=== PATIENT | female | born 1985 | race Caucasian/White ===

== ENCOUNTER 2016-12-17 13:22 | Emergency (ER) | payer OTHER ==
[~2016-12-17] VITALS: Ht 157.5 cm; Wt 77.3 kg
[2016-12-17 15:56] VITALS: BP 128/75
== END 2016-12-17 17:37 | disposition home or self-care (01) ==
LOC: EMS 13:23
DX: R13.10 Dysphagia, unspecified (principal); J02.9 Acute pharyngitis, unspecified
CPT/HCPCS: 70360; 81025; 99284

== ENCOUNTER 2019-07-09 11:52 | Emergency (ER) | payer OTHER ==
[~2019-07-09] VITALS: Ht 160 cm; Wt 77.3 kg
[2019-07-09] MEDS ORDERED: CARBAMIDE PEROXIDE 6.5% 15 ML OTIC SOLUTION AU ONE (12:45)
[2019-07-09] MEDS ORDERED: DEXAMETHASONE SOD PHOS 4 MG/ML 5 ML VIAL IM ONE (12:45)
[2019-07-09] MEDS ORDERED: ACETAMINOPHEN 500 MG TABLET PO ONE (13:30)
[2019-07-09 14:05] VITALS: BP 119/76
== END 2019-07-09 14:13 | disposition home or self-care (01) ==
LOC: EMS 11:53
DX: J02.8 Acute pharyngitis due to other specified organisms (principal); B97.89 Other viral agents as the cause of diseases classified elsewhere
CPT/HCPCS: 87430; 96372; 99283; J1100

== ENCOUNTER 2020-05-01 14:03 | Emergency (ER) | payer OTHER ==
[~2020-05-01] VITALS: Ht 160 cm; Wt 84.5 kg
[2020-05-01 14:10] VITALS: BP 121/85
== END 2020-05-01 16:35 | disposition home or self-care (01) ==
LOC: EMS 14:06
DX: U07.1 COVID-19 (principal)
CPT/HCPCS: 99283; U0003

== ENCOUNTER 2020-05-08 13:17 | Emergency (ER) | payer OTHER ==
[~2020-05-08] VITALS: Ht 167.6 cm; Wt 86.4 kg
[2020-05-08 13:19] VITALS: BP 123/81
== END 2020-05-08 15:51 | disposition home or self-care (01) ==
LOC: EMS 13:17
DX: U07.1 COVID-19 (principal); J12.89 Other viral pneumonia
CPT/HCPCS: 71045-TC

== ENCOUNTER 2020-08-26 12:00 | Emergency (ER) | payer OTHER ==
[~2020-08-26] VITALS: Ht 154.9 cm; Wt 61.4 kg
[2020-08-26 12:09] VITALS: BP 132/92
[2020-08-26] MEDS ORDERED: CARBAMIDE PEROXIDE 6.5% 15 ML OTIC SOLUTION AU ONE (13:00)
== END 2020-08-26 14:36 | disposition home or self-care (01) ==
LOC: EMS 12:00
DX: G56.02 Carpal tunnel syndrome, left upper limb (principal); H61.23 Impacted cerumen, bilateral
CPT/HCPCS: 69209; 69210; 99283; 99284

== ENCOUNTER 2021-01-14 18:43 | Emergency (ER) | payer OTHER ==
[~2021-01-14] VITALS: Ht 160 cm; Wt 74.5 kg
[2021-01-14 18:45] VITALS: BP 116/76
== END 2021-01-14 20:03 | disposition home or self-care (01) ==
LOC: EMS 18:43
DX: M79.7 Fibromyalgia (principal); M62.838 Other muscle spasm; F41.9 Anxiety disorder, unspecified; G56.02 Carpal tunnel syndrome, left upper limb; Z87.891 Personal history of nicotine dependence
CPT/HCPCS: 99281; 99283

== ENCOUNTER 2021-01-15 11:34 | Emergency (ER) | payer OTHER ==
[~2021-01-15] VITALS: Ht 160 cm; Wt 74.1 kg
[2021-01-15 13:55] LABS: APPEARANCE,URINE CLEAR (CLEAR); BILIRUBIN,URINE NEGATIVE (NEGATIVE); GLUCOSE, URINE (UA) NEGATIVE (NEGATIVE); KETONES,URINE NEGATIVE (NEGATIVE); LEUKOCYTE ESTERASE ,URINE NEGATIVE (NEGATIVE); NITRATE,URINE NEGATIVE (NEGATIVE); OCCULT BLOOD,URINE TRACE (NEGATIVE); PH,URINE 6.5 (5.0-8.0); PROTEIN,URINE NEGATIVE (NEGATIVE); UROBILINOGEN,URINE 0.2 mg/dL (<=1.0)
[2021-01-15 14:02] LABS: BACTERIA,URINE None Seen /HPF (None Seen); RBC,URINE 0-2 /HPF (0-2); WBC,URINE None Seen /HPF (0-5)
[2021-01-15 15:14] VITALS: BP 110/70
== END 2021-01-15 15:15 | disposition home or self-care (01) ==
LOC: EMS 11:40
DX: M79.605 Pain in left leg (principal); F41.9 Anxiety disorder, unspecified
CPT/HCPCS: 81001; 84703; 93971; 99284; Z7502

== ENCOUNTER 2021-08-28 20:07 | Emergency (ER) | payer OTHER ==
[~2021-08-28] VITALS: Ht 160 cm; Wt 60.0 kg
[2021-08-28 22:34] LABS: BASOPHILS % (AUTO) 1.2 % (0.0-2.0); EOSINOPHILS % (AUTO) 2.7 % (1.0-6.0); HEMATOCRIT 40.6 % (36-46); HEMOGLOBIN 13.9 g/dL (12.0-16.0); LYMPHOCYTES # (AUTO) 1.6 K/uL (1.0-4.8); MEAN CORPUSCULAR HEMOGLOBIN 32.6 pg (26.0-34.0); MEAN CORPUSCULAR HGB CONC 34.3 G/dL (31.0-37.0); MEAN CORPUSCULAR VOLUME 95 fL (80-100); MONOCYTES # (AUTO) 0.4 K/uL (0.1-1.0); MONOCYTES % (AUTO) 6.3 % (2.0-9.0); NEUTROPHILS # (AUTO) 3.4 K/uL (1.8-7.7); NEUTROPHILS % (AUTO) 60.8 % (40.0-70.0); PLATELET COUNT (AUTO) 216 K/uL (150-450); RED BLOOD CELL COUNT(AUTO) 4.27 MIL/uL (4.00-5.20); RED CELL DISTRIBUTION WIDTH 12.5 % (11.5-14.5)
[2021-08-28 22:42] LABS: ANION GAP 4 mmol/L (8-16); CALCIUM, TOTAL 8.7 mg/dL (8.8-10.5); CARBON DIOXIDE 31 mmol/L (22-29); CHLORIDE 101 mmol/L (98-107); CREATININE 0.64 mg/dL (0.60-1.30); GLOMERULAR FILTR. RATE CALC > 60 mL/min (>60); GLUCOSE,RANDOM 83 mg/dL (70-110); POTASSIUM 3.4 mmol/L (3.5-5.1); SODIUM SERUM 136 mmol/L (136-145); UREA NITROGEN, BLOOD 13 mg/dL (7-18)
[2021-08-28 22:51] LABS: B-TYPE NATRIURETIC PEPTIDE 20 pg/mL (0-100)
[2021-08-28] MEDS ORDERED: LIDOCAINE 5% TRANSDERMAL PATCH TD ONE (23:00)
[2021-08-28] MEDS ORDERED: IBUPROFEN 600 MG TABLET PO ONE (23:00)
[2021-08-28 23:07] LABS: ALANINE AMINOTRANSFERASE 95 U/L (12-78); ALBUMIN 4.2 g/dL (3.4-5.0); ALKALINE PHOSPHATASE 47 U/L (46-116); ASPARTATE AMINOTRANSFERASE 80 U/L (15-37); BILIRUBIN,TOTAL 1.2 mg/dL (0.1-1.0); CREATINE KINASE, TOTAL ONLY 167 U/L (26-192); HCG,QUANTITATIVE < 1 mIU/mL (0-6); TOTAL PROTEIN, SERUM 7.9 g/dL (6.4-8.2)
[2021-08-28 23:15] VITALS: BP 133/101
== END 2021-08-29 00:37 | disposition home or self-care (01) ==
LOC: EMS 20:08
DX: R07.89 Other chest pain (principal); R06.02 Shortness of breath
CPT/HCPCS: 71045; 80053; 82550; 83880; 84484; 84702; 85025; 85379; 93005; 99285; 36415-L1; 36415-TC

== ENCOUNTER 2021-09-17 15:14 | Emergency (ER) | payer OTHER ==
[~2021-09-17] VITALS: Ht 160 cm; Wt 70.0 kg
[2021-09-17] MEDS ORDERED: IBUPROFEN 600 MG TABLET PO ONE (17:00)
[2021-09-17 17:19] LABS: BASOPHILS % (AUTO) 0.6 % (0.0-2.0); EOSINOPHILS % (AUTO) 1.2 % (1.0-6.0); HEMATOCRIT 37.1 % (36-46); HEMOGLOBIN 12.6 g/dL (12.0-16.0); LYMPHOCYTES # (AUTO) 1.3 K/uL (1.0-4.8); LYMPHOCYTES % (AUTO) 22.8 % (22.0-44.0); MEAN CORPUSCULAR HEMOGLOBIN 32.5 pg (26.0-34.0); MEAN CORPUSCULAR HGB CONC 34.1 G/dL (31.0-37.0); MEAN CORPUSCULAR VOLUME 95 fL (80-100); MONOCYTES # (AUTO) 0.6 K/uL (0.1-1.0); MONOCYTES % (AUTO) 10.2 % (2.0-9.0); NEUTROPHILS # (AUTO) 3.8 K/uL (1.8-7.7); NEUTROPHILS % (AUTO) 65.2 % (40.0-70.0); PLATELET COUNT (AUTO) 217 K/uL (150-450); RED BLOOD CELL COUNT(AUTO) 3.89 MIL/uL (4.00-5.20); RED CELL DISTRIBUTION WIDTH 12.6 % (11.5-14.5)
[2021-09-17 17:28] LABS: ANION GAP 6 mmol/L (8-16); CALCIUM, TOTAL 8.9 mg/dL (8.8-10.5); CARBON DIOXIDE 31 mmol/L (22-29); CHLORIDE 100 mmol/L (98-107); CREATININE 0.63 mg/dL (0.60-1.30); GLOMERULAR FILTR. RATE CALC > 60 mL/min (>60); GLUCOSE,RANDOM 102 mg/dL (70-110); POTASSIUM 4.4 mmol/L (3.5-5.1); SODIUM SERUM 137 mmol/L (136-145); UREA NITROGEN, BLOOD 8 mg/dL (7-18)
[2021-09-17 18:05] LABS: COVID AG,FIA SOURCE NASOPHARYNGEAL
[2021-09-17 18:07] VITALS: BP 123/92
== END 2021-09-17 18:50 | disposition home or self-care (01) ==
LOC: EMS 15:18
DX: R07.81 Pleurodynia (principal); J02.9 Acute pharyngitis, unspecified; R06.02 Shortness of breath; F41.9 Anxiety disorder, unspecified; Z20.822 Contact with and (suspected) exposure to COVID-19
CPT/HCPCS: 71045; 80048; 84484; 85025; 85379; 93005; 99285; 36415-L1; 36415-TC

== ENCOUNTER 2021-09-19 10:43 | Emergency (ER) | payer OTHER ==
[~2021-09-19] VITALS: Ht 167.6 cm; Wt 72.7 kg
[2021-09-19] MEDS ORDERED: KETOROLAC TROMETHAMINE 10 MG TABLET PO ONE (13:30)
[2021-09-19 13:58] LABS: BASOPHILS % (AUTO) 0.6 % (0.0-2.0); EOSINOPHILS % (AUTO) 1.3 % (1.0-6.0); HEMOGLOBIN 13.3 g/dL (12.0-16.0); LYMPHOCYTES # (AUTO) 1.3 K/uL (1.0-4.8); LYMPHOCYTES % (AUTO) 17.9 % (22.0-44.0); MEAN CORPUSCULAR HEMOGLOBIN 32.6 pg (26.0-34.0); MEAN CORPUSCULAR HGB CONC 34.1 G/dL (31.0-37.0); MEAN CORPUSCULAR VOLUME 96 fL (80-100); MONOCYTES # (AUTO) 0.4 K/uL (0.1-1.0); MONOCYTES % (AUTO) 6.4 % (2.0-9.0); NEUTROPHILS # (AUTO) 5.2 K/uL (1.8-7.7); NEUTROPHILS % (AUTO) 73.8 % (40.0-70.0); PLATELET COUNT (AUTO) 229 K/uL (150-450); RED BLOOD CELL COUNT(AUTO) 4.07 MIL/uL (4.00-5.20); RED CELL DISTRIBUTION WIDTH 12.7 % (11.5-14.5)
[2021-09-19 14:10] LABS: ANION GAP 6 mmol/L (8-16); CALCIUM, TOTAL 8.8 mg/dL (8.8-10.5); CARBON DIOXIDE 29 mmol/L (22-29); CHLORIDE 103 mmol/L (98-107); CREATININE 0.57 mg/dL (0.60-1.30); GLUCOSE,RANDOM 81 mg/dL (70-110); POTASSIUM 4.2 mmol/L (3.5-5.1); SODIUM SERUM 138 mmol/L (136-145); UREA NITROGEN, BLOOD 6 mg/dL (7-18)
[2021-09-19 14:11] LABS: GLOMERULAR FILTR. RATE CALC > 60 mL/min (>60)
[2021-09-19 14:13] LABS: ALANINE AMINOTRANSFERASE 141 U/L (12-78); ALKALINE PHOSPHATASE 38 U/L (46-116); ASPARTATE AMINOTRANSFERASE 127 U/L (15-37); BILIRUBIN,TOTAL 1.2 mg/dL (0.1-1.0); TOTAL PROTEIN, SERUM 7.9 g/dL (6.4-8.2)
[2021-09-19 14:26] LABS: COVID AG,FIA SOURCE NASOPHARYNGEAL
[2021-09-19] MEDS ORDERED: ALBU8HFA IH (15:04)
[2021-09-19] MEDS ORDERED: NAPR-1024 PO (15:04)
[2021-09-19] MEDS ORDERED: GABA-1216 PO (15:04)
[2021-09-19] MEDS ORDERED: TRAM50TA4 PO (15:05)
[2021-09-19] MEDS ORDERED: ONDANSETRON HCL 4 MG TABLET PO ONE (17:00)
[2021-09-19 17:02] VITALS: BP 114/72
== END 2021-09-19 17:10 | disposition home or self-care (01) ==
LOC: EMS 10:43
DX: R07.89 Other chest pain (principal); F41.9 Anxiety disorder, unspecified; Z20.822 Contact with and (suspected) exposure to COVID-19
CPT/HCPCS: 36415; 71045; 80053; 85025; 87426; 93005; 99285; Q0162

== ENCOUNTER 2021-10-01 08:39 | Emergency (ER) | payer OTHER ==
[~2021-10-01] VITALS: Ht 160 cm; Wt 61.4 kg
[~2021-10-01 08:39] MED LIST: ALBU8HFA IH; GABA-1216 PO; NAPR-1024 PO
[2021-10-01 08:50] VITALS: BP 120/74
[2021-10-01 09:29] LABS: COVID AG,FIA SOURCE NASOPHARYNGEAL
== END 2021-10-01 10:19 | disposition home or self-care (01) ==
LOC: EMS 08:39
DX: Z20.822 Contact with and (suspected) exposure to COVID-19 (principal); F41.9 Anxiety disorder, unspecified; F32.A Depression, unspecified; K76.0 Fatty (change of) liver, not elsewhere classified; Z87.898 Personal history of other specified conditions
CPT/HCPCS: 99283

== ENCOUNTER 2021-12-14 21:43 | Emergency (ER) | payer OTHER ==
[~2021-12-14] VITALS: Ht 157.5 cm; Wt 68.2 kg
[2021-12-14 23:13] LABS: HEMATOCRIT 40.9 % (36-46); HEMOGLOBIN 14.2 g/dL (12.0-16.0); MEAN CORPUSCULAR HEMOGLOBIN 32.3 pg (26.0-34.0); MEAN CORPUSCULAR HGB CONC 34.6 G/dL (31.0-37.0); MEAN CORPUSCULAR VOLUME 93 fL (80-100); MONOCYTES # (AUTO) 0.2 K/uL (0.1-1.0); MONOCYTES % (AUTO) 3.9 % (2.0-9.0); NEUTROPHILS # (AUTO) 2.6 K/uL (1.8-7.7); NEUTROPHILS % (AUTO) 43.1 % (40.0-70.0); PLATELET COUNT (AUTO) 276 K/uL (150-450); RED BLOOD CELL COUNT(AUTO) 4.39 MIL/uL (4.00-5.20); RED CELL DISTRIBUTION WIDTH 12.5 % (11.5-14.5)
[2021-12-14 23:22] LABS: ANION GAP 14 mmol/L (8-16); CALCIUM, TOTAL 8.9 mg/dL (8.8-10.5); CARBON DIOXIDE 25 mmol/L (22-29); CHLORIDE 101 mmol/L (98-107); CREATININE 0.53 mg/dL (0.60-1.30); GLUCOSE,RANDOM 98 mg/dL (70-110); POTASSIUM 3.8 mmol/L (3.5-5.1); SODIUM SERUM 140 mmol/L (136-145); UREA NITROGEN, BLOOD 6 mg/dL (7-18)
[2021-12-14 23:23] LABS: GLOMERULAR FILTR. RATE CALC > 60 mL/min (>60)
[2021-12-14 23:33] LABS: ALANINE AMINOTRANSFERASE 46 U/L (12-78); ALBUMIN 4.5 g/dL (3.4-5.0); ALKALINE PHOSPHATASE 46 U/L (46-116); ASPARTATE AMINOTRANSFERASE 38 U/L (15-37); BILIRUBIN,TOTAL 0.8 mg/dL (0.1-1.0); HCG,QUANTITATIVE < 1 mIU/mL (0-6); LIPASE 253 U/L (73-393); TOTAL PROTEIN, SERUM 8.4 g/dL (6.4-8.2)
[2021-12-15] MEDS ORDERED: FAMOTIDINE 10 MG/ML 2 ML VIAL IVP ONE (00:15)
[2021-12-15] MEDS ORDERED: SODIUM CHLORIDE 0.9% 1,000 ML IV ONE (00:15)
[2021-12-15 01:11] LABS: APPEARANCE,URINE HAZY (CLEAR); BILIRUBIN,URINE NEGATIVE (NEGATIVE); GLUCOSE, URINE (UA) NEGATIVE (NEGATIVE); KETONES,URINE NEGATIVE (NEGATIVE); LEUKOCYTE ESTERASE ,URINE LARGE (NEGATIVE); NITRATE,URINE NEGATIVE (NEGATIVE); OCCULT BLOOD,URINE NEGATIVE (NEGATIVE); PH,URINE 5.5 (5.0-8.0); PROTEIN,URINE NEGATIVE (NEGATIVE); SPECIFIC GRAVITIY, URINE 1.009 (1.003-1.030); UROBILINOGEN,URINE <=1.0 mg/dL (<=1.0)
[2021-12-15 01:20] LABS: RBC,URINE 0-2 /HPF (0-2)
[2021-12-15 01:21] LABS: BACTERIA,URINE Few /HPF (None Seen)
[2021-12-15 04:00] VITALS: BP 90/56
== END 2021-12-15 05:29 | disposition home or self-care (01) ==
LOC: EMS 21:43
DX: F10.229 Alcohol dependence with intoxication, unspecified (principal); K29.70 Gastritis, unspecified, without bleeding; F41.9 Anxiety disorder, unspecified; F32.A Depression, unspecified; K76.0 Fatty (change of) liver, not elsewhere classified; Z86.79 Personal history of other diseases of the circulatory system; Y90.8 Blood alcohol level of 240 mg/100 ml or more
CPT/HCPCS: 99284; 76705; 80053; 81001; 83690; 84702; 84703; 85025; 36415; 87086; 96374; 96361; G0480; J3490; J7030

== ENCOUNTER 2021-12-16 21:35 | Emergency (ER) | payer OTHER ==
[~2021-12-16] VITALS: Ht 157.5 cm; Wt 70.0 kg
[2021-12-16 22:36] LABS: BASOPHILS % (AUTO) 0.6 % (0.0-2.0); EOSINOPHILS % (AUTO) 1.9 % (1.0-6.0); HEMATOCRIT 36.2 % (36-46); HEMOGLOBIN 12.4 g/dL (12.0-16.0); LYMPHOCYTES % (AUTO) 33.8 % (22.0-44.0); MEAN CORPUSCULAR HEMOGLOBIN 31.9 pg (26.0-34.0); MEAN CORPUSCULAR HGB CONC 34.2 G/dL (31.0-37.0); MEAN CORPUSCULAR VOLUME 93 fL (80-100); MONOCYTES # (AUTO) 0.5 K/uL (0.1-1.0); MONOCYTES % (AUTO) 7.8 % (2.0-9.0); NEUTROPHILS # (AUTO) 3.3 K/uL (1.8-7.7); NEUTROPHILS % (AUTO) 55.9 % (40.0-70.0); PLATELET COUNT (AUTO) 216 K/uL (150-450); RED BLOOD CELL COUNT(AUTO) 3.88 MIL/uL (4.00-5.20); RED CELL DISTRIBUTION WIDTH 12.3 % (11.5-14.5)
[2021-12-16 22:46] LABS: ANION GAP 10 mmol/L (8-16); CALCIUM, TOTAL 8.9 mg/dL (8.8-10.5); CARBON DIOXIDE 27 mmol/L (22-29); CHLORIDE 99 mmol/L (98-107); CREATININE 0.66 mg/dL (0.60-1.30); GLOMERULAR FILTR. RATE CALC > 60 mL/min (>60); GLUCOSE,RANDOM 100 mg/dL (70-110); POTASSIUM 3.7 mmol/L (3.5-5.1); SODIUM SERUM 136 mmol/L (136-145); UREA NITROGEN, BLOOD 15 mg/dL (7-18)
[2021-12-16 22:57] LABS: ALANINE AMINOTRANSFERASE 50 U/L (12-78); ALBUMIN 4.2 g/dL (3.4-5.0); ALKALINE PHOSPHATASE 40 U/L (46-116); ASPARTATE AMINOTRANSFERASE 40 U/L (15-37); BILIRUBIN,TOTAL 1.6 mg/dL (0.1-1.0); TOTAL PROTEIN, SERUM 7.7 g/dL (6.4-8.2)
[2021-12-16 23:28] LABS: HCG,QUANTITATIVE < 1 mIU/mL (0-6); PHOSPHORUS 3.8 mg/dL (2.5-4.9)
[2021-12-17] VITALS: BP 132/87
== END 2021-12-17 00:52 | disposition home or self-care (01) ==
LOC: EMS 21:35
DX: R00.2 Palpitations (principal); F32.9 Major depressive disorder, single episode, unspecified; F41.9 Anxiety disorder, unspecified; Z79.899 Other long term (current) drug therapy
CPT/HCPCS: 99284; 80053; 83735; 84100; 84702; 85025; 36415; 93005; G0480

== ENCOUNTER 2022-01-15 17:55 | Emergency (ER) | payer OTHER ==
[~2022-01-15] VITALS: Ht 157.5 cm; Wt 70.9 kg
[2022-01-15] MEDS ORDERED: SODIUM CHLORIDE 0.9% 1,000 ML IV ONE (19:30)
[2022-01-15] MEDS ORDERED: KETOROLAC TROMETHAMINE 30 MG/ML VIAL IVP ONE (19:30)
[2022-01-15] MEDS ORDERED: ONDANSETRON HCL 4 MG/2 ML VIAL IVP ONE (19:30)
[2022-01-15 19:48] LABS: BASOPHILS % (AUTO) 0.1 % (0.0-2.0); EOSINOPHILS % (AUTO) 0 % (1.0-6.0); HEMATOCRIT 39.9 % (36-46); HEMOGLOBIN 13.6 g/dL (12.0-16.0); LYMPHOCYTES # (AUTO) 0.3 K/uL (1.0-4.8); LYMPHOCYTES % (AUTO) 5.2 % (22.0-44.0); MEAN CORPUSCULAR HEMOGLOBIN 32.1 pg (26.0-34.0); MEAN CORPUSCULAR VOLUME 94 fL (80-100); MONOCYTES # (AUTO) 0.5 K/uL (0.1-1.0); MONOCYTES % (AUTO) 7.6 % (2.0-9.0); NEUTROPHILS # (AUTO) 5.5 K/uL (1.8-7.7); PLATELET COUNT (AUTO) 212 K/uL (150-450); RED BLOOD CELL COUNT(AUTO) 4.23 MIL/uL (4.00-5.20); RED CELL DISTRIBUTION WIDTH 13.5 % (11.5-14.5)
[2022-01-15 19:50] LABS: NEUTROPHILS % (AUTO) 87.1 % (40.0-70.0)
[2022-01-15 20:04] LABS: PLATELET MORPHOLOGY COMMENT GIANT PLTS PRESENT
[2022-01-15 20:07] LABS: ANION GAP 13 mmol/L (8-16); CALCIUM, TOTAL 8.9 mg/dL (8.8-10.5); CARBON DIOXIDE 25 mmol/L (22-29); CHLORIDE 97 mmol/L (98-107); CREATININE 0.67 mg/dL (0.60-1.30); GLUCOSE,RANDOM 113 mg/dL (70-110); SODIUM SERUM 135 mmol/L (136-145); UREA NITROGEN, BLOOD 12 mg/dL (7-18)
[2022-01-15 20:08] LABS: GLOMERULAR FILTR. RATE CALC > 60 mL/min (>60)
[2022-01-15 20:19] LABS: ALANINE AMINOTRANSFERASE 126 U/L (12-78); ALBUMIN 4.3 g/dL (3.4-5.0); ALKALINE PHOSPHATASE 40 U/L (46-116); ASPARTATE AMINOTRANSFERASE 57 U/L (15-37); BILIRUBIN,TOTAL 1.7 mg/dL (0.1-1.0); HCG,QUANTITATIVE < 1 mIU/mL (0-6); LIPASE 127 U/L (73-393); TOTAL PROTEIN, SERUM 8.2 g/dL (6.4-8.2)
[2022-01-15] MEDS ORDERED: DOCU-385 PO (20:32)
[2022-01-15] MEDS ORDERED: OMEP20 PO (20:32)
[2022-01-15] MEDS ORDERED: ONDA-104 PO (20:32)
[2022-01-15 20:45] VITALS: BP 129/83
== END 2022-01-15 20:49 | disposition home or self-care (01) ==
LOC: EMS 17:57
DX: K70.9 Alcoholic liver disease, unspecified (principal); R10.13 Epigastric pain; K59.00 Constipation, unspecified; F10.20 Alcohol dependence, uncomplicated; F41.9 Anxiety disorder, unspecified; F32.A Depression, unspecified; K76.0 Fatty (change of) liver, not elsewhere classified; Z86.79 Personal history of other diseases of the circulatory system
CPT/HCPCS: 99284; 96374; 96361; 96375; 80053; 83690; 84702; 85025; 36415; G0480; J1885; J2405; J7030

== ENCOUNTER 2022-02-09 01:18 | Emergency (ER) | payer OTHER ==
[~2022-02-09] VITALS: Ht 157.5 cm; Wt 70.0 kg
[~2022-02-09 01:18] MED LIST changes: +DOCU-385 PO; +OMEP20 PO; +ONDA-104 PO
[2022-02-09 01:19] VITALS: BP 120/77
== END 2022-02-09 03:39 | disposition left against medical advice (07) ==
LOC: EMS 01:18
DX: Z53.21 Procedure and treatment not carried out due to patient leaving prior to being seen by health care provider (principal)
CPT/HCPCS: 93005

== ENCOUNTER 2022-05-04 12:47 | Emergency (ER) | payer OTHER ==
[~2022-05-04] VITALS: Ht 160 cm; Wt 68.2 kg
[2022-05-04 14:23] LABS: BASOPHILS % (AUTO) 0.6 % (0.0-2.0); EOSINOPHILS % (AUTO) 0.4 % (1.0-6.0); HEMATOCRIT 40.1 % (36-46); HEMOGLOBIN 13.8 g/dL (12.0-16.0); LYMPHOCYTES # (AUTO) 1.5 K/uL (1.0-4.8); LYMPHOCYTES % (AUTO) 18.4 % (22.0-44.0); MEAN CORPUSCULAR HEMOGLOBIN 32.4 pg (26.0-34.0); MEAN CORPUSCULAR HGB CONC 34.4 G/dL (31.0-37.0); MEAN CORPUSCULAR VOLUME 94 fL (80-100); MONOCYTES # (AUTO) 0.4 K/uL (0.1-1.0); MONOCYTES % (AUTO) 4.8 % (2.0-9.0); NEUTROPHILS # (AUTO) 6.4 K/uL (1.8-7.7); NEUTROPHILS % (AUTO) 75.8 % (40.0-70.0); PLATELET COUNT (AUTO) 330 K/uL (150-450); RED BLOOD CELL COUNT(AUTO) 4.26 MIL/uL (4.00-5.20); RED CELL DISTRIBUTION WIDTH 12.2 % (11.5-14.5)
[2022-05-04 14:30] LABS: ANION GAP 8 mmol/L (8-16); CALCIUM, TOTAL 9.4 mg/dL (8.8-10.5); CARBON DIOXIDE 28 mmol/L (22-29); CHLORIDE 95 mmol/L (98-107); CREATININE 0.65 mg/dL (0.60-1.30); GLUCOSE,RANDOM 111 mg/dL (70-110); POTASSIUM 3.8 mmol/L (3.5-5.1); SODIUM SERUM 131 mmol/L (136-145); UREA NITROGEN, BLOOD 7 mg/dL (7-18)
[2022-05-04 14:31] LABS: GLOMERULAR FILTR. RATE CALC > 60 mL/min (>60)
[2022-05-04 14:45] LABS: ALANINE AMINOTRANSFERASE 68 U/L (12-78); ALBUMIN 4.7 g/dL (3.4-5.0); ALKALINE PHOSPHATASE 46 U/L (46-116); ASPARTATE AMINOTRANSFERASE 49 U/L (15-37); BILIRUBIN,TOTAL 2.2 mg/dL (0.1-1.0); FREE T4 (FREE THYROXINE) 0.82 ng/dL (0.76-1.46); HCG,QUANTITATIVE < 1 mIU/mL (0-6); THYROID STIMULATING HORMONE 0.78 uIU/mL (0.36-3.74); TOTAL PROTEIN, SERUM 8.6 g/dL (6.4-8.2)
[2022-05-04] MEDS ORDERED: MAGNESIUM SULFATE 2 GM/WATER 50 ML IV ONE (15:15)
[2022-05-04 17:17] VITALS: BP 140/88
== END 2022-05-04 17:18 | disposition home or self-care (01) ==
LOC: EMS 12:51
DX: R00.2 Palpitations (principal); E83.42 Hypomagnesemia; F10.20 Alcohol dependence, uncomplicated; F41.9 Anxiety disorder, unspecified; F32.A Depression, unspecified
CPT/HCPCS: 99284; 96365; 80053; 83735; 84439; 84443; 84484; 84702; 85025; 36415; 93005; J3475

== ENCOUNTER 2022-07-23 09:43 | Emergency (ER) | payer OTHER ==
[~2022-07-23] VITALS: Ht 160 cm; Wt 56.8 kg
[2022-07-23 10:03] LABS: COVID AG,FIA SOURCE NASAL SWAB
[2022-07-23 10:57] LABS: RAPID GROUP A STREP NEGATIVE (NEGATIVE)
[2022-07-23 11:03] LABS: INFLUENZA TYPE A NEGATIVE FOR TYPE A (NEGATIVE); INFLUENZA TYPE B NEGATIVE FOR TYPE B (NEGATIVE)
[2022-07-23] MEDS ORDERED: ACETAMINOPHEN 500 MG TABLET PO ONE (15:00)
[2022-07-23] MEDS ORDERED: SODIUM CHLORIDE 0.9% 1,000 ML IV ONE (15:00)
[2022-07-23] MEDS ORDERED: DEXAMETHASONE SOD PHOS 4 MG/ML 5 ML VIAL IVP ONE (15:00)
[2022-07-23] MEDS ORDERED: KETOROLAC TROMETHAMINE 30 MG/ML VIAL IVP ONE (15:00)
[2022-07-23 16:00] VITALS: BP 125/73
[2022-07-23] MEDS ORDERED: IBUP-1506 PO (16:13)
== END 2022-07-23 16:35 | disposition home or self-care (01) ==
LOC: EMS 09:57
DX: J02.8 Acute pharyngitis due to other specified organisms (principal); R65.10 Systemic inflammatory response syndrome (SIRS) of non-infectious origin without acute organ dysfunction; F10.20 Alcohol dependence, uncomplicated; F41.9 Anxiety disorder, unspecified; F32.A Depression, unspecified; Z87.891 Personal history of nicotine dependence; Z20.822 Contact with and (suspected) exposure to COVID-19
CPT/HCPCS: 99284; 96374; 96361; 96375; 87426; 87430; 87804; J1100; J1885; J7030

== ENCOUNTER 2022-09-26 17:42 | Emergency (ER) | payer OTHER ==
[~2022-09-26] VITALS: Ht 157.5 cm; Wt 81.8 kg
[~2022-09-26 17:42] MED LIST changes: -ALBU8HFA IH; -DOCU-385 PO; -GABA-1216 PO; +IBUP-1506 PO; -NAPR-1024 PO; -OMEP20 PO; -ONDA-104 PO
[2022-09-26] MEDS ORDERED: SODIUM CHLORIDE 0.9% 1,000 ML IV ONE (18:15)
[2022-09-26 18:42] LABS: BASOPHILS % (AUTO) 0.9 % (0.0-2.0); EOSINOPHILS % (AUTO) 0.3 % (1.0-6.0); HEMATOCRIT 39.7 % (36-46); HEMOGLOBIN 13.7 g/dL (12.0-16.0); LYMPHOCYTES # (AUTO) 2.4 K/uL (1.0-4.8); MEAN CORPUSCULAR HGB CONC 34.4 G/dL (31.0-37.0); MEAN CORPUSCULAR VOLUME 93 fL (80-100); MONOCYTES # (AUTO) 0.3 K/uL (0.1-1.0); MONOCYTES % (AUTO) 4.9 % (2.0-9.0); NEUTROPHILS # (AUTO) 3.9 K/uL (1.8-7.7); NEUTROPHILS % (AUTO) 57.9 % (40.0-70.0); PLATELET COUNT (AUTO) 232 K/uL (150-450); RED BLOOD CELL COUNT(AUTO) 4.27 MIL/uL (4.00-5.20); RED CELL DISTRIBUTION WIDTH 12.8 % (11.5-14.5)
[2022-09-26 18:53] LABS: ANION GAP 13 mmol/L (8-16); CALCIUM, TOTAL 8.8 mg/dL (8.8-10.5); CARBON DIOXIDE 26 mmol/L (22-29); CHLORIDE 96 mmol/L (98-107); CREATININE 0.69 mg/dL (0.60-1.30); GLOMERULAR FILTR. RATE CALC > 60 mL/min (>60); GLUCOSE,RANDOM 102 mg/dL (70-110); POTASSIUM 3.6 mmol/L (3.5-5.1); SODIUM SERUM 135 mmol/L (136-145)
[2022-09-26 19:06] LABS: AMPHET/METH SCREEN,URINE NEGATIVE (NEGATIVE); BARBITURATE SCREEN, URINE NEGATIVE (NEGATIVE); BENZODIAZEPINES SCREEN,URINE NEGATIVE (NEGATIVE); CANNABINOID SCREEN,URINE NEGATIVE (NEGATIVE); COCAINE SCREEN,URINE NEGATIVE (NEGATIVE); METHADONE SCREEN, URINE NEGATIVE (NEGATIVE); OPIATE SCREEN,URINE NEGATIVE (NEGATIVE); PHENCYCLIDINE SCREEN,URINE NEGATIVE (NEGATIVE)
[2022-09-26 19:08] LABS: ALANINE AMINOTRANSFERASE 32 U/L (12-78); ALBUMIN 4.7 g/dL (3.4-5.0); ALKALINE PHOSPHATASE 39 U/L (46-116); ASPARTATE AMINOTRANSFERASE 28 U/L (15-37); BILIRUBIN,TOTAL 1.3 mg/dL (0.1-1.0); HCG,QUANTITATIVE < 1 mIU/mL (0-6); THYROID STIMULATING HORMONE 0.84 uIU/mL (0.36-3.74); TOTAL PROTEIN, SERUM 8.5 g/dL (6.4-8.2)
[2022-09-26 20:30] VITALS: BP 127/75
== END 2022-09-26 20:30 | disposition home or self-care (01) ==
LOC: EMS 17:47
DX: F41.9 Anxiety disorder, unspecified (principal); R00.2 Palpitations; F10.20 Alcohol dependence, uncomplicated; F32.A Depression, unspecified
CPT/HCPCS: 99285; 96360; 71045; 80053; 83735; 84443; 84484; 84702; 85025; 36415; 93005; 80307 ×2; G0480; J7030

== ENCOUNTER 2022-12-30 15:37 | Emergency (ER) | payer OTHER ==
[~2022-12-30] VITALS: Ht 160 cm; Wt 63.6 kg
[2022-12-30 15:52] VITALS: TEMP 98.4
[2022-12-30 16:49] LABS: EOSINOPHILS % (AUTO) 1.4 % (1.0-6.0); HEMATOCRIT 39.8 % (36-46); HEMOGLOBIN 13.4 g/dL (12.0-16.0); LYMPHOCYTES # (AUTO) 1.7 K/uL (1.0-4.8); LYMPHOCYTES % (AUTO) 26.6 % (22.0-44.0); MEAN CORPUSCULAR HEMOGLOBIN 32.3 pg (26.0-34.0); MEAN CORPUSCULAR HGB CONC 33.6 G/dL (31.0-37.0); MEAN CORPUSCULAR VOLUME 96 fL (80-100); MONOCYTES # (AUTO) 0.3 K/uL (0.1-1.0); MONOCYTES % (AUTO) 5.4 % (2.0-9.0); NEUTROPHILS # (AUTO) 4.1 K/uL (1.8-7.7); NEUTROPHILS % (AUTO) 65.6 % (40.0-70.0); PLATELET COUNT (AUTO) 266 K/uL (150-450); RED BLOOD CELL COUNT(AUTO) 4.13 MIL/uL (4.00-5.20); RED CELL DISTRIBUTION WIDTH 12.6 % (11.5-14.5)
[2022-12-30 17:52] LABS: ANION GAP 13 mmol/L (8-16); CALCIUM, TOTAL 9.4 mg/dL (8.8-10.5); CARBON DIOXIDE 26 mmol/L (22-29); CHLORIDE 99 mmol/L (98-107); CREATININE 0.57 mg/dL (0.60-1.30); GLOMERULAR FILTR. RATE CALC > 60 mL/min (>60); GLUCOSE,RANDOM 117 mg/dL (70-110); POTASSIUM 3.5 mmol/L (3.5-5.1); SODIUM SERUM 138 mmol/L (136-145)
[2022-12-30 18:23] LABS: ALANINE AMINOTRANSFERASE 43 U/L (12-78); ALBUMIN 4.5 g/dL (3.4-5.0); ALKALINE PHOSPHATASE 37 U/L (46-116); ASPARTATE AMINOTRANSFERASE 38 U/L (15-37); BILIRUBIN,TOTAL 1.4 mg/dL (0.1-1.0); TOTAL PROTEIN, SERUM 7.8 g/dL (6.4-8.2)
[2022-12-30 19:04] LABS: AMPHET/METH SCREEN,URINE NEGATIVE (NEGATIVE); BARBITURATE SCREEN, URINE NEGATIVE (NEGATIVE); BENZODIAZEPINES SCREEN,URINE NEGATIVE (NEGATIVE); CANNABINOID SCREEN,URINE NEGATIVE (NEGATIVE); COCAINE SCREEN,URINE NEGATIVE (NEGATIVE); METHADONE SCREEN, URINE NEGATIVE (NEGATIVE); OPIATE SCREEN,URINE NEGATIVE (NEGATIVE); PHENCYCLIDINE SCREEN,URINE NEGATIVE (NEGATIVE)
[2022-12-30 21:35] VITALS: BP 124/71; PULSE 69; RESP 16
[2022-12-30] MEDS ORDERED: ChlordiazePOXIDE HCL 10 MG CAPSULE PO ONE (21:45)
[2022-12-30] MEDS ORDERED: CHLO10CA7 PO (22:13)
[2022-12-30] MEDS ORDERED: OMEP20 PO (22:15)
== END 2022-12-30 23:38 | disposition home or self-care (01) ==
LOC: EMS 15:42
DX: F10.139 Alcohol abuse with withdrawal, unspecified (principal); F41.9 Anxiety disorder, unspecified; F32.A Depression, unspecified; K76.0 Fatty (change of) liver, not elsewhere classified; Z87.891 Personal history of nicotine dependence
CPT/HCPCS: 99283; 80053; 84703; 85025; 36415; 80307 ×2; G0480

== ENCOUNTER 2023-04-01 09:39 | Emergency (ER) | payer OTHER ==
[~2023-04-01 09:39] MED LIST changes: +CHLO10CA7 PO; -IBUP-1506 PO; +OMEP20 PO
== END 2023-04-01 10:20 | disposition left against medical advice (07) ==
LOC: EMS 09:39
DX: R06.02 Shortness of breath (principal); Z53.21 Procedure and treatment not carried out due to patient leaving prior to being seen by health care provider
CPT/HCPCS: 99281; Z7502

== ENCOUNTER 2023-05-26 08:20 | Emergency (ER) | payer OTHER ==
[~2023-05-26] VITALS: Ht 160 cm; Wt 68.6 kg
[2023-05-26 09:06] VITALS: BP 140/94; PULSE 92; RESP 16; TEMP 98.1
[2023-05-26] MEDS ORDERED: LORA-1000 PO (09:30)
== END 2023-05-26 10:03 | disposition home or self-care (01) ==
LOC: EMS 08:57
DX: F41.9 Anxiety disorder, unspecified (principal); R00.2 Palpitations; F10.20 Alcohol dependence, uncomplicated; F32.A Depression, unspecified; Z87.891 Personal history of nicotine dependence; Y90.9 Presence of alcohol in blood, level not specified
CPT/HCPCS: 93005; 99283

== ENCOUNTER 2023-11-03 18:58 | Emergency (ER) | payer OTHER ==
[~2023-11-03] VITALS: Ht 160 cm; Wt 70.9 kg
[~2023-11-03 18:58] MED LIST changes: +LORA-1000 PO
[2023-11-03 19:06] VITALS: BP 113/68; PULSE 72; RESP 18; TEMP 98.2
[2023-11-03 19:44] LABS: BASOPHILS % (AUTO) 1.3 % (0.0-2.0); HEMATOCRIT 37.3 % (36-46); HEMOGLOBIN 12.8 g/dL (12.0-16.0); LYMPHOCYTES # (AUTO) 2.6 K/uL (1.0-4.8); LYMPHOCYTES % (AUTO) 36.3 % (22.0-44.0); MEAN CORPUSCULAR HEMOGLOBIN 32.2 pg (26.0-34.0); MEAN CORPUSCULAR HGB CONC 34.4 G/dL (31.0-37.0); MEAN CORPUSCULAR VOLUME 94 fL (80-100); MONOCYTES # (AUTO) 0.5 K/uL (0.1-1.0); MONOCYTES % (AUTO) 7.2 % (2.0-9.0); NEUTROPHILS # (AUTO) 3.8 K/uL (1.8-7.7); NEUTROPHILS % (AUTO) 53.2 % (40.0-70.0); PLATELET COUNT (AUTO) 273 K/uL (150-450); RED BLOOD CELL COUNT(AUTO) 3.97 MIL/uL (4.00-5.20); RED CELL DISTRIBUTION WIDTH 12.1 % (11.5-14.5); WHITE BLOOD COUNT (AUTO) 7.1 K/uL (4.5-11.0)
[2023-11-03 19:57] LABS: ALCOHOL, BLOOD (SERUM) < 3 mg/dL (0-10)
[2023-11-03 20:00] LABS: B-TYPE NATRIURETIC PEPTIDE < 5 pg/mL (0-100)
[2023-11-03 20:02] LABS: ANION GAP 6 mmol/L (8-16); CARBON DIOXIDE 29 mmol/L (22-29); CHLORIDE 101 mmol/L (98-107); CREATININE 0.51 mg/dL (0.60-1.30); GLOMERULAR FILTR. RATE CALC > 60 mL/min (>60); GLUCOSE,RANDOM 104 mg/dL (70-110); POTASSIUM 3.8 mmol/L (3.5-5.1); SODIUM SERUM 136 mmol/L (136-145); UREA NITROGEN, BLOOD 12 mg/dL (7-18)
[2023-11-03 20:08] LABS: TROPONIN I-HIGH SENSITIVITY Less Than 4 ng/L (<51)
[2023-11-03 20:27] LABS: ALANINE AMINOTRANSFERASE 35 U/L (12-78); ALBUMIN 4.1 g/dL (3.4-5.0); ALKALINE PHOSPHATASE 43 U/L (46-116); ASPARTATE AMINOTRANSFERASE 35 U/L (15-37); BILIRUBIN,TOTAL 1.2 mg/dL (0.1-1.0); CREATINE KINASE, TOTAL ONLY 157 U/L (26-192); TOTAL PROTEIN, SERUM 7.8 g/dL (6.4-8.2)
== END 2023-11-03 21:18 | disposition home or self-care (01) ==
LOC: EMS 18:58
DX: R00.2 Palpitations (principal); Z79.899 Other long term (current) drug therapy
CPT/HCPCS: 99285; 71045; 80053; 82550; 83735; 83880; 84484; 84703; 85025; 36415; 93005; G0480

== ENCOUNTER 2025-02-23 08:49 | Emergency (ER) | payer OTHER ==
[~2025-02-23] VITALS: Ht 157.5 cm; Wt 79.0 kg
[~2025-02-23 08:49] MED LIST changes: -LORA-1000 PO; +LORA1TAB25 PO; +OMEP-148 PO; -OMEP20 PO
[2025-02-23 08:58] VITALS: TEMP 98.4
[2025-02-23 09:00] VITALS: BP 115/79; PULSE 87; RESP 17; O2SAT 99
[2025-02-23] MEDS ORDERED: OMEP-148 PO (09:54)
[2025-02-23] MEDS ORDERED: BACI28.410 TP (09:54)
[2025-02-23] MEDS ORDERED: METH-659 PO (09:54)
== END 2025-02-23 10:10 | disposition home or self-care (01) ==
LOC: EMS 08:51
DX: M62.830 Muscle spasm of back (principal); F41.9 Anxiety disorder, unspecified; F32.A Depression, unspecified; F10.20 Alcohol dependence, uncomplicated; Z87.891 Personal history of nicotine dependence; Z79.899 Other long term (current) drug therapy; Y90.9 Presence of alcohol in blood, level not specified
CPT/HCPCS: 99283; Z7502